=== PATIENT | female | born 1980 | race Caucasian/White ===

== ENCOUNTER 2018-01-16 15:55 | Emergency (ER) | payer SELFPAY ==
[2018-01-16] MEDS ORDERED: AMOXIL 500 MG PO ONE (16:09)
[2018-01-16 16:10] VITALS: BP 103/68; PULSE 90; O2SAT 100
[2018-01-16] MEDS ORDERED: AMOXIL 500 MG ONE (16:13)
--- NOTE | 2018-01-16 16:13 | ERPHSYRPT ---
- History of Present Illness Time Seen by Provider: 01/16/18 16:10 Source: patient Physician History: mild right ear ache since , occasional drainage, no bleeding, +hearing loss, no fever, no emesis Allergies/Adverse Reactions: No Known Drug Allergies Allergy (Unverified 01/16/18 16:11) - Review of Systems Constitutional: No Fever Eyes: No Eye Redness Ears, Nose, & Throat: Ear Pain, Ear Discharge, Hearing Changes Respiratory: No Dyspnea Cardiac: No Chest Pain Abdominal/Gastrointestinal: No Abdominal Pain, No Vomiting Musculoskeletal: No Neck Pain Skin: No Skin Lesions Neurological: No Dizziness, No Focal Weakness, No Headache - Nursing Vital Signs Nursing Vital Signs: Initial Vital Signs Temperature 98.6 F 01/16/18 15:58 Pulse Rate 90 01/16/18 15:58 Respiratory Rate 16 01/16/18 15:58 Blood Pressure 103/68 01/16/18 15:58 O2 Sat by Pulse Oximetry 100 01/16/18 15:58 Pain Scale Pain Intensity 5 - Physical Exam General Appearance: no apparent distress Eye Exam: bilateral eye: PERRL, EOMI Ear Exam: right ear: erythema, TM red Throat Exam: pharynx normal Neck Exam: normal inspection Neurologic Exam: alert, oriented x 3, cooperative Skin Exam: warm - Course Nursing assessment & vital signs reviewed: Yes Ordered Tests: Medication Summary Discontinued Medications Generic Name Dose Route Start Last Admin Trade Name Mauq PRN Reason Stop Dose Admin Amoxicillin 500 mg 01/16/18 16:09 01/16/18 16:15 Amoxil 500 Mg PO 01/16/18 16:10 500 mg STAT ONE Administration Amoxicillin Confirm 01/16/18 16:13 Amoxil 500 Mg Administered 01/16/18 16:14 Dose 500 mg .ROUTE .STK-MED ONE - Progress Progress: unchanged Counseled pt/family regarding: diagnosis, need for follow-up - Departure Time of Disposition: 16:17 Departure Disposition: Home Clinical Impression: Otitis media Qualifiers: Otitis media type: unspecified Chronicity: acute Qualified Code(s): H66.90 - Otitis media, unspecified, unspecified ear Condition: Stable Critical Care Time: No Instructions: Ear Infections (Otitis Media) (DC) Prescriptions: Amoxicillin [Amoxil] 1 cap PO TID #30 capsule
== END 2018-01-16 16:51 | disposition home or self-care (01) ==
LOC: ED 15:55
DX: H66.90 Otitis media, unspecified, unspecified ear (principal)
CPT/HCPCS: 99283; A9270-GY